=== PATIENT | female | born 1965 | race Caucasian/White ===

== ENCOUNTER 2017-11-13 20:16 | Emergency (ER) | payer BC ==
[~2017-11-13] VITALS: Ht 162.6 cm; Wt 96.9 kg
[~2017-11-13 20:16] MED LIST: ALBINS INH; BUDE0.25 INH; CEPH-570 PO; FLVHFA110 INH; OXYC-57 PO; SNG10 PO; TRAM-10 PO; [UNRECOGNIZED DRUG - CODE] PO
[2017-11-13 20:20] VITALS: TEMP 36.6; Ht 162.6 cm; Wt 96.9 kg
[2017-11-13] MEDS ORDERED: SODIUM CHLORIDE 0.9% 1000ML 1,000 ML IV STA (20:32)
[2017-11-13] MEDS ORDERED: FENTANYL CITRATE INJ 50 MCG/1 ML 2 ML VIAL IV STA (20:32)
[2017-11-13] MEDS ORDERED: ACETAMINOPHEN IV 100 ML IV STA (20:32)
[2017-11-13] MEDS ORDERED: ONDANSETRON INJ 2 MG/ML 2 ML VIAL IV STA (20:32)
--- NOTE | 2017-11-13 20:44 | EMERGENCY ROOM VISIT NOTE ---
History Report prepared by Telma: Steve Daily Under the Supervision of: Dr. Ashutosh Braun M.D. First contact with patient: 20:24 Chief Complaint: BACK PAIN Stated Complaint: PAIN IN BACK/SIDE History of Present Illness The patient is a 51 year old female who presents to the Emergency Room with complaints of worsening right lower back pain that began a couple of days ago. She rates her discomfort as a 5.5/10 in severity. The patient states that she also noticed her urine has had a foul smell to it for the last couple of days. She reports that she has also been experiencing nausea. She reports that this morning her pain was mild, but now she reports that her pain is uncomfortable. The patient states that she mad an appointment because she thought she had a UTI. She states that she has a history of kidney stones, with her last stone 25 years ago. The patient denies any burning sensation or pain upon urination, fevers, chills, cough, congestion, vomiting Source of History: patient Onset: yesterday Position: back (lower, right) Symptom Intensity: 5.5/10 Timing: worsening Associated Symptoms: + nausea, + urinary symptoms, No fevers, No chills, No cough, No vomiting Review of Systems See HPI for pertinent positives and negatives. A total of ten systems were reviewed and were otherwise negative. Past Medical & Surgical Medical Problems: (1) Bronchitis Family History Cancer Gallbladder disease Social History Smoking Status: Never Smoker Smokeless Tobacco Use: No Alcohol Use: none Drug Use: none Occupation Status: employed Current/Historical Medications Scheduled Ciprofloxacin Hcl (Cipro), 500 MG PO BID Diphenhydramine Hcl (Sleep) (Diphenhydramine Hcl), 50 MG PO HS Saccharomyces Boulardii (Florastor), 1 CAP PO BID Tramadol (Ultram), 50 MG PO Q6HR PRN Scheduled PRN Albuterol Hfa (Ventolin Hfa), 2 PUFFS INH Q6H PRN for SOB/Wheezing Furosemide (Furosemide), 20 MG PO DAILY PRN for EDEMA Allergies Coded Allergies: Ibuprofen (Unverified Allergy, Mild, high doses lead to swelling, 2/5/10) Ketorolac (Unverified Allergy, Mild, 2/5/10) Naproxen (Unverified Allergy, Mild, 2/5/10) Diclofenac (Unverified Allergy, Unknown, 2/5/10) Penicillins (Verified Allergy, Unknown, 01/03/10) Uncoded Allergies: NONSTEROIDAL (Allergy, Mild, 01/03/10) Physical Exam Vital Signs Date Time Temp Pulse Resp B/P (MAP) Pulse Ox O2 Delivery O2 Flow Rate FiO2 11/13/17 23:09 71 17 121/80 96 11/13/17 23:00 75 11/13/17 21:35 80 15 133/86 95 Room Air 11/13/17 20:20 36.6 86 20 135/86 97 Room Air Physical Exam GENERAL: Awake, alert, well-appearing, in no distress HENT: Normocephalic, atraumatic. Oropharynx unremarkable. EYES: Normal conjunctiva. Sclera non-icteric. NECK: Supple. No nuchal rigidity. FROM. No JVD. RESPIRATORY: Clear to auscultation. CARDIAC: Regular rate, normal rhythm. Extremities warm and well perfused. Pulses equal. ABDOMEN: Soft, non-distended. No tenderness to palpation. No rebound or guarding. No masses. RECTAL: Deferred. MUSCULOSKELETAL: Chest examination reveals no tenderness. The back is symmetrical on inspection without obvious abnormality. There is mild right CVA tenderness to palpation. No peritoneal signs. No joint edema. LOWER EXTREMITIES: Calves are equal size bilaterally and non-tender. No edema. No discoloration. NEURO: Normal sensorium. No sensory or motor deficits noted. SKIN: No rash or jaundice noted. Medical Decision & Procedures ER Provider Diagnostic Interpretation: Radiology results as stated below per my review and radiologist interpretation ABDOMEN AND PELVIS CT WITH IV CONTRAST CT DOSE: 1480.92 mGy.cm HISTORY: right flank pain TECHNIQUE: Multiaxial CT images of the abdomen and pelvis were performed following the use of intravenous contrast. A dose lowering technique was utilized adhering to the principles of ALARA. COMPARISON STUDY: None. FINDINGS: The visualized lung bases are clear. No pneumoperitoneum. No pneumatosis. No fractures within the visualized osseous structures. Cholecystectomy. A 2.6 cm hypodense lesion within the periphery of the right hepatic lobe. This is incompletely characterized on this single phase study. The spleen, adrenal glands, pancreas, left kidney are unremarkable. A 3.9 cm cyst within the lower pole of the right kidney. No renal or ureteral stones. No hydronephrosis. Normal bladder. Punctate calcifications in the deep pelvis are consistent with phleboliths. No retroperitoneal lymphadenopathy. The left renal vein drains into the azygos vein and not the IVC. This is considered to be a normal variant. No retroperitoneal or mesenteric lymphadenopathy. Hysterectomy. No bowel wall thickening or obstruction. Normal appendix. IMPRESSION: 1. No bowel wall thickening or obstruction. 2. Normal appendix. 3. No renal stones or hydronephrosis. 4. An indeterminate 2.6 cm hypodense lesion within the right hepatic lobe. However, in the absence of a known malignancy this is statistically benign. 5. Cholecystectomy. Electronically signed by: Arnol Martins M.D. 11/13/2017 10:26 PM Dictated Date/Time: 11/13/2017 10:16 PM Laboratory Results 11/13/17 21:05 Red Blood Count 4.73, Mean Corpuscular Volume 83.7, Mean Corpuscular Hemoglobin 27.5, Mean Corpuscular Hemoglobin Concent 32.8, Mean Platelet Volume 9.9, Neutrophils (%) (Auto) 61.6, Lymphocytes (%) (Auto) 30.6, Monocytes (%) (Auto) 6.3, Eosinophils (%) (Auto) 1.1, Basophils (%) (Auto) 0.2, Neutrophils # (Auto) 5.35, Lymphocytes # (Auto) 2.66, Monocytes # (Auto) 0.55, Eosinophils # (Auto) 0.10, Basophils # (Auto) 0.02 11/13/17 21:05 Test 11/13/17 20:25 11/13/17 21:05 Urine Color YELLOW Urine Appearance CLEAR (CLEAR) Urine pH 6.5 (4.5-7.5) Urine Specific Viola 1.022 (1.000-1.030) Urine Protein NEG (NEG) Urine Glucose (UA) NEG (NEG) Urine Ketones NEG (NEG) Urine Occult Blood 2+ (NEG) Urine Nitrite NEG (NEG) Urine Bilirubin NEG (NEG) Urine Urobilinogen NEG (NEG) Urine Leukocyte Esterase SMALL (NEG) Urine WBC (Auto) 10-30 /hpf (0-5) Urine RBC (Auto) >30 /hpf (0-4) Urine Hyaline Casts (Auto) 0 /lpf (0-5) Urine Epithelial Cells (Auto) >30 /lpf (0-5) Urine Bacteria (Auto) 4+ (NEG) White Blood Count 8.70 K/uL (4.8-10.8) Red Blood Count 4.73 M/uL (4.2-5.4) Hemoglobin 13.0 g/dL (12.0-16.0) Hematocrit 39.6 % (37-47) Mean Corpuscular Volume 83.7 fL (80-100) Mean Corpuscular Hemoglobin 27.5 pg (25-34) Mean Corpuscular Hemoglobin Concent 32.8 g/dl (32-36) Platelet Count 245 K/uL (130-400) Mean Platelet Volume 9.9 fL (7.4-10.4) Neutrophils (%) (Auto) 61.6 % Lymphocytes (%) (Auto) 30.6 % Monocytes (%) (Auto) 6.3 % Eosinophils (%) (Auto) 1.1 % Basophils (%) (Auto) 0.2 % Neutrophils # (Auto) 5.35 K/uL (1.4-6.5) Lymphocytes # (Auto) 2.66 K/uL (1.2-3.4) Monocytes # (Auto) 0.55 K/uL (0.11-0.59) Eosinophils # (Auto) 0.10 K/uL (0-0.5) Basophils # (Auto) 0.02 K/uL (0-0.2) RDW Standard Deviation 49.3 fL (36.4-46.3) RDW Coefficient of Variation 16.2 % (11.5-14.5) Immature Granulocyte % (Auto) 0.2 % Immature Granulocyte # (Auto) 0.02 K/uL (0.00-0.02) Anion Gap 8.0 mmol/L (3-11) Est Creatinine Clear Calc Drug Dose 61.0 ml/min Estimated GFR () 59.0 Estimated GFR (Non- 50.9 BUN/Creatinine Ratio 21.9 (10-20) Calcium Level 9.3 mg/dl (8.5-10.1) Total Bilirubin 0.6 mg/dl (0.2-1) Direct Bilirubin 0.1 mg/dl (0-0.2) Aspartate Amino Transf (AST/SGOT) 10 U/L (15-37) Alanine Aminotransferase (ALT/SGPT) 20 U/L (12-78) Alkaline Phosphatase 89 U/L (45-117) Total Protein 7.4 gm/dl (6.4-8.2) Albumin 3.8 gm/dl (3.4-5.0) Lipase 251 U/L (73-393) Laboratory results reviewed by me Medications Administered Medications (Trade) Dose Ordered Sig/Enrique Route Start Time Stop Time Status Last Admin Dose Admin Sodium Chloride 1,000 ml @ 999 mls/hr Q1H1M STAT IV 11/13/17 20:32 11/13/17 21:32 DC 11/13/17 21:22 999 MLS/HR Ondansetron HCl (Zofran Inj) 4 mg NOW STAT IV 11/13/17 20:32 11/13/17 20:39 DC 11/13/17 21:22 4 MG Acetaminophen 100 ml @ 400 mls/hr NOW STAT IV 11/13/17 20:32 11/13/17 20:46 DC 11/13/17 21:21 400 MLS/HR Fentanyl Citrate (Fentanyl Inj) 50 mcg NOW STAT IV 11/13/17 20:32 11/13/17 20:39 DC 11/13/17 21:22 50 MCG Ciprofloxacin/ Dextrose (Cipro / D5W) 400 mg NOW STAT IV 11/13/17 21:30 11/13/17 21:31 DC 11/13/17 22:06 400 MG ED Course 2030: The patient was evaluated in room A03. A complete history and physical exam was performed. 2235: I reevaluated the patient. Discussed results and discharge instructions: She verbalized understanding and agreement. The patient is ready for discharge. Medical Decision I reviewed the patient's past medical history, medications, and the nursing notes as described above. The patient's presentation and history were concerning for UTI, Pyelonephritis, renal stone, biliary etiology. The patient is a 51-year-old woman with a remote history of kidney stones who presents to emergency department with right flank pain that occurred yesterday per history of present illness. While the patient is no acute distress, afebrile stable vital signs. Exam the patient has mild tenderness to the right CVA and right flank but no peritoneal signs. WBC within normal limits. Creatinine is 1.2 however no prior values for comparison available. UA grossly positive for UTI. CT scan negative for renal stones. Given the patient's right flank pain in the setting of UTI will treat for pyelonephritis with Cipro. IV dose in the emergency department. Follow-up with her PCP. Incidental findings from CT scan discussed with patient. Findings and plan for follow-up reviewed with patient. Patient agreeable and d/c'd per discharge instructions. Medication Reconcilliation Current Medication List: was personally reviewed by me Blood Pressure Screening Patient's blood pressure: Elevated blood pressure Blood pressure disposition: Elevated BP felt to be situational Impression Primary Impression: Pyelonephritis Scribe Attestation The scribe's documentation has been prepared under my direction and personally reviewed by me in its entirety. I confirm that the note above accurately reflects all work, treatment, procedures, and medical decision making performed by me. Departure Information Dispostion Home / Self-Care Prescriptions Saccharomyces Boulardii (Florastor) 250 Mg Cap 1 CAP PO BID for 10 Days, #20 CAP Prov: Ashutosh Braun M.D. 11/13/17 Ciprofloxacin Hcl (CIPRO) 500 Mg Tab 500 MG PO BID for 7 Days, #14 TAB Prov: Ashutosh Braun M.D. 11/13/17 Referrals Charlotte Jimenez D.O. (PCP) Patient Instructions [facility], Pyelonephritis Dc Additional Instructions Please follow up with your primary care physician next week for re-evaluation and repeat kidney function tests. You were found to have a urinary tract infection and likely pyelonephritis given your side pain. Otherwise, your exam, CT scan, and lab results did not show signs of an emergent condition at this time. Ciprofloxacin as directed. Florastor probiotic to help prevent antibiotic associated diarrhea. Return to the emergency department for worsening symptoms as described in the accompanying instructions.
[2017-11-13] MEDS ORDERED: DIPH50TA10 PO (20:45)
[2017-11-13] MEDS ORDERED: OPTIRAY 320 IV PRN ×2 (20:45→21:15)
[2017-11-13] MEDS ORDERED: VNTHFA/IN INH (20:46)
[2017-11-13] MEDS ORDERED: LSX20 PO (20:48)
[2017-11-13 21:09] LABS: URINE APPEARANCE CLEAR (CLEAR); URINE BILIRUBIN NEG (NEG); URINE COLOR YELLOW; URINE EPITHELIAL CELL AUTO >30 /lpf (0-5); URINE NITRITE NEG (NEG); URINE PH 6.5 (4.5-7.5); URINE SPECIFIC GRAVITY 1.022 (1.000-1.030); UROBILINOGEN NEG (NEG); ZZUR CULT IF INDIC CLEAN CATCH YES
[2017-11-13 21:11] LABS: MANUAL MICROSCOPIC REQUIRED? NO; REVIEW REQ? NO
[2017-11-13] MEDS ORDERED: CEFTRIAXONE SOD INJ 1 GM ADDVIAL IV STA (21:29)
[2017-11-13] MEDS ORDERED: CIPROFLOXACIN 400MG / 200ML D5W IV STA (21:30)
[2017-11-13 21:37] LABS: BASO % 0.2 %; BASO ABS # 0.02 K/uL (0-0.2); BUN/CREATININE RATIO 21.9 (10-20); CALCIUM 9.3 mg/dl (8.5-10.1); COMPLETE YES; CREATININE 1.22 mg/dl (0.60-1.20); EOS % 1.1 %; HEMATOCRIT 39.6 % (37-47); IG% 0.2 %; LYMPH % 30.6 %; LYMPH ABS # 2.66 K/uL (1.2-3.4); MEAN CELL VOLUME 83.7 fL (80-100); MEAN CORPUSCULAR HEMOGLOBIN 27.5 pg (25-34); MEAN CORPUSCULAR HGB CONC 32.8 g/dl (32-36); MEAN PLATELET VOLUME 9.9 fL (7.4-10.4); MONO % 6.3 %; NEUT % 61.6 %; PLATELET COUNT 245 K/uL (130-400); POTASSIUM 3.7 mmol/L (3.5-5.1); RED BLOOD COUNT 4.73 M/uL (4.2-5.4)
--- NOTE | 2017-11-13 22:27 | DIAGNOSTIC IMAGING REPORT ---
ABDOMEN AND PELVIS CT WITH IV CONTRAST CT DOSE: 1480.92 mGy.cm HISTORY: right flank pain TECHNIQUE: Multiaxial CT images of the abdomen and pelvis were performed following the use of intravenous contrast. A dose lowering technique was utilized adhering to the principles of ALARA. COMPARISON STUDY: None. FINDINGS: The visualized lung bases are clear. No pneumoperitoneum. No pneumatosis. No fractures within the visualized osseous structures. Cholecystectomy. A 2.6 cm hypodense lesion within the periphery of the right hepatic lobe. This is incompletely characterized on this single phase study. The spleen, adrenal glands, pancreas, left kidney are unremarkable. A 3.9 cm cyst within the lower pole of the right kidney. No renal or ureteral stones. No hydronephrosis. Normal bladder. Punctate calcifications in the deep pelvis are consistent with phleboliths. No retroperitoneal lymphadenopathy. The left renal vein drains into the azygos vein and not the IVC. This is considered to be a normal variant. No retroperitoneal or mesenteric lymphadenopathy. Hysterectomy. No bowel wall thickening or obstruction. Normal appendix. IMPRESSION: 1. No bowel wall thickening or obstruction. 2. Normal appendix. 3. No renal stones or hydronephrosis. 4. An indeterminate 2.6 cm hypodense lesion within the right hepatic lobe. However, in the absence of a known malignancy this is statistically benign. 5. Cholecystectomy. Electronically signed by: Arnol Martins M.D. 11/13/2017 10:26 PM Dictated Date/Time: 11/13/2017 10:16 PM
[2017-11-13] MEDS ORDERED: SACC250C3 PO (22:34)
[2017-11-13] MEDS ORDERED: CIPR-255 PO (22:34)
[2017-11-13 23:09] VITALS: BP 121/80; PULSE 71; O2SAT 96
--- NOTE | 2017-11-16 11:44 | Pharmacy Progress Note ---
ED Pharmacist Culture FollowUp Date of Service: Nov 16, 2017. Patient was sent home with a prescription for cipro 500mg BID X 7 days, which should cover the E. Coli growing from the patient's urine culture.
== END 2017-11-13 23:11 | disposition home or self-care (01) ==
LOC: C.EDB 20:16 → C.EDA 23:11
DX: N12 Tubulo-interstitial nephritis, not specified as acute or chronic (principal); Z87.442 Personal history of urinary calculi; Z88.0 Allergy status to penicillin; Z88.8 Allergy status to other drugs, medicaments and biological substances; Z80.9 Family history of malignant neoplasm, unspecified; Z83.79 Family history of other diseases of the digestive system